=== PATIENT | female | born 1965 | race Two or more races ===

== ENCOUNTER 2025-05-30 06:59 | Inpatient (IN) | payer MEDICAID, OTHER ==
[~2025-05-30] VITALS: Ht 157.5 cm; Wt 68.0 kg
--- NOTE | 2025-05-30 07:35 | ED.PDOC ---
GI ASSESSMENT HPI Comments 59 y/o, presents to the ED for CC of abdominal pain. Patient states, she has been experiencing diffuse abdominal pain that radiates to her lower back sudden onset, 0400 today (05/30/25). Patient reports, associated symptoms of nausea, vomiting, and diarrhea. Upon arrival to the ED, patient's blood pressure is elevated at 175/97mmHg. Patient denies fever, chills, sweats, hematemesis, or melena. No other associated symptoms, modifiers, recent injuries or sick contacts are present at this time. Chief Complaint: Abdominal Pain Time Seen by MD: 07:30 Primary Care Provider: NONE Reviewed Notes: Nurses Notes, Medications, Allergies Allergies: Coded Allergies: NO KNOWN ALLERGIES (Unverified , 03/30/14) Information Source: Patient Mode of Arrival: Ambulatory Timing: Hours Duration: Since onset Prehospital treatment: None Quality: None Vomitus: None Stool: Normal Severity: Moderate Recent: None Recent Hx of: None Pain Location: Diffuse Modifying Factors: Nothing Associated sign and symptoms: Abdominal Pain Past Medical History PAST MEDICAL HISTORY: Denies Surgical History: BTL, Thyroidectomy [employer] History: No Pertinent [employer] History Family History Family History: Unobtainable Social History Smoker: Non-Smoker Alcohol: Denies ETOH Use Drugs: Denies Drug Use Lives In: Home Constitutional: denies: chills, diaphoresis, fatigue, fever, malaise, sweats, weakness, others EENTM: denies: blurred vision, double vision, ear bleeding, ear discharge, ear drainage, ear pain, ear ringing, eye pain, eye redness, hearing loss, mouth pain, mouth swelling, nasal discharge, nose bleeding, nose congestion, nose pain, photophobia, tearing, throat pain, throat swelling, voice changes, others Respiratory: denies: cough, hemoptysis, orthopnea, SOB at rest, shortness of breath, SOB with excertion, stridor, wheezing, others Cardiovascular: denies: chest pain, dizzy spells, diaphoresis, Dyspnea on exertion, edema, irregular heart beat, left arm pain, lightheadedness, palpitations, PND, syncope, others Gastrointestinal: reports: abdominal pain; denies: abdomen distended, blood streaked bowels, constipated, diarrhea, dysphagia, difficulty swallowing, hematemesis, melena, nausea, poor appetite, poor fluid intake, rectal bleeding, rectal pain, vomiting, others Genitourinary: denies: abnormal vagina bleeding, burning, dyspareunia, dysuria, flank pain, frequency, hematuria, incontinence, pain, , vagina discharge, urgency, others Neurological: denies: dizziness, fainting, headache, left sided numbness, left sided weakness, numbness, paresthesia, pre-existing deficit, right sided numbness, right sided weakness, seizure, speech problems, tingling, tremors, weakness, others Musculoskeletal: reports: back pain; denies: gout, joint pain, joint swelling, muscle pain, muscle stiffness, neck pain, others Integumetry: denies: bruises, change in color, change in hair/nails, dryness, laceration, lesions, lumps, rash, wounds, others Allergic/Immunocompromised: denies: Difficulty Healing, Frequent Infections, Hives, Itching, others Hematologic/Lymphatic: denies: anemia, blood clots, easy bleeding, easy bruising, swollen glands, others Endocrine: denies: excessive hunger, excessive sweating, excessive thirst, excessive urination, flushing, intolerance to cold, intolerance to heat, unexplained weight gain, unexplained weight loss, others Psychiatric: denies: anxiety, bipolar disorder, depression, hopeless, panic disorder, schizophrenia, sleepless, suicidal, others All Other Systems: Reviewed and Negative Physical Exam General Appearance: Moderate Distress HEENT: Normal ENT Inspection, Pharynx Normal, TMs Normal Neck: Full Range of Motion, Non-Tender, Normal, Normal Inspection Respiratory: Chest Non-Tender, Lungs Clear, No Accessory Muscle Use, No Respiratory Distress, Normal Breath Sounds Cardiovascular: No Edema, No JVD, No Murmur, No Gallop, Normal Peripheral Pulses, Regular Rate/Rhythm Breast Exam: Deferred Gastrointestinal: Diffuse, No Organomegaly, No Pulsatile Mass, Normal Bowel Sounds, Soft Genitalia: Deferred Pelvic: Deferred Rectal: Deferred Extremities: No calf tenderness, Normal capillary refill, Normal inspection, Normal range of motion, Non-tender, No pedal edema Musculoskeletal : Apperance: Normal Neurologic: Alert, progress man II-XII nml as Tested, No Motor Deficits, Normal Affect, Normal Mood, No Sensory Deficits Cerebellar Function: Normal Reflexes: Normal Skin: Dry, Normal Color, Warm Peripheral Pulses: 3+ Radial (R), 3+ Radial (L) Lymphatic: No Adenopathy Was a procedure done? Was a procedure done?: No GI differential Dx Differential Diagnosis: Cholecystitis, Diverticular disease, Esophagitis, Gastritis/PUD, Gastroenteritis, Inflammatory BD, Pancreatitis, Urolithiasis, Kidney Stone X-Ray, Labs, Meds, VS Vital Signs Date Time Temp Pulse Resp B/P (MAP) Pulse Ox O2 Delivery O2 Flow Rate FiO2 05/30/25 09:41 Room Air* 0 21 05/30/25 09:41 98.0 76 18 188/106 (133) 99 98.0 05/30/25 07:02 98.1 81 24 175/97 97 98.1 Lab Test 05/30/25 08:00 Range/Units White Blood Count 10.0 4.4-10.8 10^3/uL Red Blood Count 5.08 4.0-5.20 10^6/uL Hemoglobin 14.2 12.2-16.2 g/dL Hematocrit 41.7 36.0-46.0 % Mean Corpuscular Volume 82.1 80.0-100.0 fL Mean Corpuscular Hemoglobin 28.0 28.0-32.0 pg Mean Corpuscular Hemoglobin Concent 34.1 32.0-36.0 g/dL Red Cell Distribution Width 14.1 11.8-14.3 % Platelet Count 251 140-450 10^3/uL Mean Platelet Volume 8.5 6.9-10.8 fL Neutrophils (%) (Auto) 75.7 37.0-80.0 % Lymphocytes (%) (Auto) 16.8 10.0-50.0 % Monocytes (%) (Auto) 5.5 0.0-12.0 % Eosinophils (%) (Auto) 1.4 0.0-7.0 % Basophils (%) (Auto) 0.6 0.0-2.0 % Neutrophils # (Auto) 7.6 1.6-8.6 10 ^3/uL Lymphocytes # (Auto) 1.7 0.4-5.4 10 ^3/uL Monocytes # (Auto) 0.5 0-1.3 10 ^3/uL Eosinophils # (Auto) 0.1 0-0.8 10 ^3/uL Basophils # (Auto) 0.1 0-0.2 10 ^3/uL Nucleated Red Blood Cells 0.1 % Sodium Level 141 136-145 mmol/L Potassium Level 3.6 3.5-5.1 mmol/L Chloride Level 106 98-107 mmol/L Carbon Dioxide Level 26 20-31 mmol/L Anion Gap 9 5-15 Blood Urea Nitrogen 15 9-23 mg/dL Creatinine 0.79 0.550-1.02 mg/dL Glomerular Filtration Rate Calc 87 >90 mL/min BUN/Creatinine Ratio 19.0 10.0-20.0 Serum Glucose 104 74-106 mg/dL Calcium Level 8.6 L 8.7-10.4 mg/dL Total Bilirubin 0.4 0.2-1.0 mg/dL Aspartate Amino Transferase (AST) 84 H 13-40 U/L Alanine Aminotransferase (ALT) 70 H 7-40 U/L Alkaline Phosphatase 155 H 46-116 U/L Total Protein 7.9 5.7-8.2 g/dL Albumin 4.6 3.2-4.8 g/dL Lipase 60 H 12-53 U/L Current Medications Medications (Trade) Dose Ordered Sig/Haylee Route Start Time Stop Time Status Last Admin Sodium Chloride 1,000 ml @ 1,000 mls/hr Q1H ONCE IV 05/30/25 08:00 05/30/25 08:59 DC 05/30/25 09:53 Acetaminophen/ Hydrocodone Bitart ([place] 5/325MG Tab) 1 tab ONCE ONCE PO 05/30/25 10:00 05/30/25 10:01 DC 05/30/25 09:52 Patient alert. Complaining of abdominal pain. Blood pressure elevated. Saturation pristine on room air. Possible gallstones. Establish intravenous access. Was given fluids. Was given morphine. Was given Zofran. Explained to the patient. Continue monitoring. CT scan of the abdomen reviewed does show changes such as gallstones possible pancreatitis. [address] [address] Ph: [phone] DIAGNOSTIC IMAGING Diagnostic Imaging Report : [id number] Signed PATIENT: THI ORTIZCCT: [id number] UNIT: [id number] : 1965 LOC: ER ROOM / BED: / AGE / SEX: 59 / F ADM STATUS: REG ER SERVICE 0753 ORDERING PHYSICIAN: JILLIAN DANIELS MD PROCEDURE(s): ABPL - CT AB PEL WO CON-NO ORAL OR IV REASON: gallstonevspancreas ORDER NUMBER(s): [id number], ACCESSION NUMBER(s): [id number] CLINICAL INFORMATION: Abdominal pain. Gallstones versus pancreas. TECHNIQUE: Axial CT images of the abdomen and pelvis were obtained without IV contrast. Coronal and sagittal reformatted images were obtained, reviewed, and stored. Evaluation of the parenchymal organs is limited without IV contrast. Evaluation of the bowel and mesentery is limited without oral contrast. All CT scans at this medical facility are performed using dose modulation techniques as appropriate to a performed exam including the following: Automated exposure control was utilized; adjustment of the MA and/or KV according to patient size; and use of iterative reconstruction technique. CTDIvol = 8.17 mGy DLP = 442.46 mGy-cm COMPARISON: None FINDINGS: Lung bases: Lung bases are clear. Liver: Grossly unremarkable in its noncontrast enhanced appearance. No abnormal density or focal lesion identified. Biliary: There are calcified gallstones in the gallbladder. Spleen: Unremarkable. Pancreas: Grossly unremarkable in its noncontrast enhanced appearance. Adrenal glands: Unremarkable. No mass. Kidneys: No hydronephrosis. No renal or ureteral calculi. Aorta/Vascular: No aneurysm or significant calcification. Retroperitoneum: No mass or lymphadenopathy. Bowel/mesentery: No small bowel obstruction. No free air or free fluid. Appendix is visualized and appears unremarkable. Scattered colonic diverticula without adjacent inflammatory changes to suggest diverticulitis. Pelvic organs: Grossly unremarkable. Bladder: Unremarkable. No mass. Abdominal wall: No mass or hernia. Bones: No acute fracture or suspicious intraosseous lesion. IMPRESSION: 1. Cholelithiasis. 2. Scattered colonic diverticula without adjacent inflammatory changes to suggest diverticulitis. 3. Pancreas appears grossly unremarkable in its limited, noncontrast enhanced appearance. Although correlation with clinical findings is needed to exclude pancreatitis. 4. Additional findings as described above. ATED BY: LEONIDAS SAHU DO DICTATED DATE/TIME: 05/30/25836 SIGNED BY: LEONIDAS SAHU DO SIGNED DATE/TIME: 05/30/25836 CC: [facility] [place] [id number] [place] [id number] Ph: [phone] DIAGNOSTIC IMAGING Diagnostic Imaging Report : [id number] Signed PATIENT: THI ORTIZCCT: [id number] UNIT: [id number] : 1965 LOC: ER ROOM / BED: / AGE / SEX: 59 / F ADM STATUS: REG ER SERVICE 7 ORDERING PHYSICIAN: JILLIAN DANIELS MD PROCEDURE(s): GBUS - GALLBLADDER REASON: le ORDER NUMBER(s): [id number], ACCESSION NUMBER(s): [id number] CLINICAL INFORMATION: Cholelithiasis. Abdominal pain. TECHNIQUE: Grayscale sonographic imaging of the right upper quadrant of the abdomen was performed, assisted by color Doppler techniques. COMPARISON: None FINDINGS: The gallbladder wall measures 1.4 mm in thickness, within normal limits. There are shadowing gallstones in the gallbladder measuring up to 1.2 cm. Negative reported sonographic Mcgarry's sign. The common bile duct measures 3.0 mm in diameter, within normal limits. Borderline increased echogenicity of the liver, may suggest mild fatty infiltration. Liver measures up to 16.5 cm in craniocaudal dimension. Pancreas is obscured by bowel gas. The right kidney measures 8.2 cm. There is no hydronephrosis. Right renal cortical echogenicity and cortical thickness are within normal limits. IMPRESSION: 1. Cholelithiasis with no sonographic evidence of acute cholecystitis. Correlate with clinical findings. 2. Borderline increased echogenicity of the liver, may suggest mild fatty infiltration. ATED BY: LEONIDAS SAHU DO DICTATED DATE/TIME: 05/30/25 1022 SIGNED BY: LEONIDAS SAHU DO SIGNED DATE/TIME: 05/30/25 1022 CC: Time of 1ST Reevaluation: 08:00 Reevaluation 1ST: Unchanged Patient Education/Counseling: Diagnosis, Treatment Family Education/Counseling: No Family Present SEPSIS Sepsis Screen Date sepsis recognized/suspect: May 30, 2025 Time Sepsis recognized/suspect: 0707 Recent Procedure: No On Antibiotic Therapy: No Respiratory Rate >20: Yes Heart Rate >90: No Temp<36 C (96.8 F) or >38.3 C: No SBP <90 or MAP <65 mmHG: No New Acute Mental Status Change: No Is the patient on CPAP, BIPAP,: No Physician Orders Urinalysis (05/30/25 07:53) Ct Ab Pel Wo Con-No Oral Or Iv (05/30/25 07:53) Gallbladder (05/30/25 09:18) Vital Signs Date Time Temp Pulse Resp B/P (MAP) Pulse Ox O2 Delivery O2 Flow Rate FiO2 05/30/25 09:41 Room Air* 0 21 05/30/25 09:41 98.0 76 18 188/106 (133) 99 98.0 05/30/25 07:02 98.1 81 24 175/97 97 98.1 Laboratory Tests Test 05/30/25 08:00 White Blood Count 10.0 10^3/uL (4.4-10.8) Medications Medications Dose Ordered Sig/Haylee Route Start Time Stop Time Status Last Admin Dose Admin Acetaminophen/ Hydrocodone Bitart 1 tab ONCE ONCE PO 05/30/25 10:00 05/30/25 10:01 DC 05/30/25 09:52 Sodium Chloride 1,000 ml @ 1,000 mls/hr Q1H ONCE IV 05/30/25 08:00 05/30/25 08:59 DC 05/30/25 09:53 Departure 1 Departure Time of Disposition: 08:09 Impression: Primary Impression: Acute abdominal pain Additional Impression: Acute pancreatitis Qualified Codes: K85.90 - Acute pancreatitis without necrosis or infection, unspecified Disposition: 09 ADMITTED INPATIENT Admit to: Med Surg Condition: Guarded Critical Care Note Critical Care Time?: No Stability Stability form required: No Heart Score Heart Score: Heart Score Response (Comments) Value History N/A 0 EKG N/A 0 Age N/A 0 Risk Factors N/A 0 Troponin N/A 0 Total 0 I personally scribed for JILLIAN DANIELS MD ([email or web address]) on 05/30/25 at 07:35. Electronically submitted by Blanquita Kauffman ([email or web address]). I personally scribed for JILLIAN DANIELS MD ([email or web address]) on 05/30/25 at 08:02. Electronically submitted by Blanquita Kauffman ([email or web address]). I personally scribed for JILLIAN DANIELS MD ([email or web address]) on 05/30/25 at 10:42. Electronically submitted by Blanquita Kauffman ([email or web address]). I personally scribed for JILLIAN DANIELS MD ([email or web address]) on 05/30/25 at 10:43. Electronically submitted by Blanquita Kauffman ([email or web address]). I personally scribed for JILLIAN DANIELS MD ([email or web address]) on 05/30/25 at 10:44. Electronically submitted by Blanquita Kauffman ([email or web address]). JILLIAN DANIELS MD May 30, 2025 07:35
[2025-05-30 08:21] LABS: Hematocrit 41.7 % (36.0-46.0); Hemoglobin 14.2 g/dL (12.2-16.2); Mean Corpuscular Hemoglobin 28.0 pg (28.0-32.0); Mean Corpuscular Volume 82.1 fL (80.0-100.0); Nucleated Red Blood Cells % 0.1 %
[2025-05-30 08:35] LABS: Chloride 106 mmol/L (98-107); Potassium 3.6 mmol/L (3.5-5.1); Sodium 141 mmol/L (136-145)
[2025-05-30 08:37] LABS: Anion Gap 9 (5-15); Carbon Dioxide 26 mmol/L (20-31)
[2025-05-30 08:39] LABS: Calcium 8.6 mg/dL (8.7-10.4)
--- NOTE | 2025-05-30 08:39 | DVH ---
CLINICAL INFORMATION: Abdominal pain. Gallstones versus pancreas. TECHNIQUE: Axial CT images of the abdomen and pelvis were obtained without IV contrast. Coronal and s agittal reformatted images were obtained, reviewed, and stored. Evaluation of the parenchymal organs is limited without IV contrast. Evaluation of the bowel and mesentery is limited without oral contras t. All CT scans at this medical facility are performed using dose modulation techniques as appropriat e to a performed exam including the following: Automated exposure control was utilized; adjustment of the MA and/or KV according to patient size; and use of iterative reconstruction technique. CTDIvol = 8.17 mGy DLP = 442.46 mGy-cm COMPARISON: None FINDINGS: Lung bases: Lung bases are clear. Liver: Grossly unremarkable in its noncontrast enhanced appearance. No abnormal density or focal lesi on identified. Biliary: There are calcified gallstones in the gallbladder. Spleen: Unremarkable. Pancreas: Grossly unremarkable in its noncontrast enhanced appearance. Adrenal glands: Unremarkable. No mass. Kidneys: No hydronephrosis. No renal or ureteral calculi. Aorta/Vascular: No aneurysm or significant calcification. Retroperitoneum: No mass or lymphadenopathy. Bowel/mesentery: No small bowel obstruction. No free air or free fluid. Appendix is visualized and ap pears unremarkable. Scattered colonic diverticula without adjacent inflammatory changes to suggest d iverticulitis. Pelvic organs: Grossly unremarkable. Bladder: Unremarkable. No mass. Abdominal wall: No mass or hernia. Bones: No acute fracture or suspicious intraosseous lesion. IMPRESSION: 1. Cholelithiasis. 2. Scattered colonic diverticula without adjacent inflammatory changes to suggest diverticulitis. 3. Pancreas appears grossly unremarkable in its limited, noncontrast enhanced appearance. Although c orrelation with clinical findings is needed to exclude pancreatitis. 4. Additional findings as described above.
[2025-05-30 08:42] LABS: Glucose 104 mg/dL (74-106)
[2025-05-30 08:43] LABS: Blood Urea Nitrogen 15 mg/dL (9-23); Total Protein 7.9 g/dL (5.7-8.2)
[2025-05-30 08:44] LABS: Albumin 4.6 g/dL (3.2-4.8)
[2025-05-30 08:45] LABS: Alkaline Phosphatase 155 U/L (46-116); Bilirubin, Total 0.4 mg/dL (0.2-1.0)
[2025-05-30 08:46] LABS: Alanine Aminotransferase 70 U/L (7-40); BUN/Creatinine Ratio 19.0 (10.0-20.0); Lipase 60 U/L (12-53)
[2025-05-30] MEDS: HYDROcodone-ACET 5/325MG TAB PO ONE (09:52)
[2025-05-30] MEDS: SODIUM CHLORIDE 0.9% 1,000 ML IV ONE (09:53)
[2025-05-30] MEDS: MORPHINE SULFATE 4 MG/ML SYR/VIAL IV ONE (09:53)
[2025-05-30] MEDS: ONDANSETRON HCL 4 MG/2 ML VIAL IV ONE (09:53)
[2025-05-30] MEDS: HYDROcodone-ACET 5/325MG TAB ONE (09:54)
--- NOTE | 2025-05-30 10:25 | DVH ---
CLINICAL INFORMATION: Cholelithiasis. Abdominal pain. TECHNIQUE: Grayscale sonographic imaging of the right upper quadrant of the abdomen was performed, a ssisted by color Doppler techniques. COMPARISON: None FINDINGS: The gallbladder wall measures 1.4 mm in thickness, within normal limits. There are shado wing gallstones in the gallbladder measuring up to 1.2 cm. Negative reported sonographic Mcgarry's sig n. The common bile duct measures 3.0 mm in diameter, within normal limits. Borderline increased echogenicity of the liver, may suggest mild fatty infiltration. Liver measures u p to 16.5 cm in craniocaudal dimension. Pancreas is obscured by bowel gas. The right kidney measures 8.2 cm. There is no hydronephrosis. Right renal cortical echogenicity an d cortical thickness are within normal limits. IMPRESSION: 1. Cholelithiasis with no sonographic evidence of acute cholecystitis. Correlate with clinical findin gs. 2. Borderline increased echogenicity of the liver, may suggest mild fatty infiltration.
[2025-05-30 13:00] VITALS: BP 158/99; PULSE 72; RESP 18; TEMP 97.6; O2SAT 97
[2025-05-30] MEDS ORDERED: NITROGLYCERIN 0.4 MG SL TAB SL PRN (13:45)
[2025-05-30] MEDS ORDERED: MORPHINE SULFATE INJ 2 MG/ml SYRG IV PRN ×2 (13:45)
[2025-05-30] MEDS ORDERED: ONDANSETRON HCL 4 MG/2 ML VIAL IV PRN (13:45)
--- NOTE | 2025-05-30 14:20 | DVHHPRES ---
History of Present Illness Resident Creating Document: SENDY POLANCO RESIDENT History of Present Illness Angie Hebert is a 52s in his old female with a PMH of HTN thyroid surgery presenting with a chief complaints of abdominal pain and diarrhea. Patient reported the abdominal pain is primarily located in the epigastric region, described as being in the middle upper abdomen which started today moaning, radiating to back with no aggravating or relieving factors but associated with nausea and diarrhea which is nonbloody. Patient believes that symptoms may be related to the eating tacos from outside started yesterday. Patient also endorsed history of gallbladder stones which was diagnosed 2-3 ye ars ago. On my assessment patient denies fever, chest pain, shortness of breath, bloody diarrhea, vomiting and other associated symptoms at this time. PMH: HTN, cholelithiasis, GERD, thyroid tumor status post thyroidectomy PSH: Thyroidectomy today years ago Family history: Noncontributory Social history: Lives at home with the . Denies smoking, alcohol and other drug abuse Allergies: No known allergies Home medications: Hypertensive medications but not sure what she is taking Patient seen and examined at the bedside. Patient currently reporting having Abdominal pain, nausea and diarrhea has been improved. No other symptoms at this time. Review of Systems Allergies: Coded Allergies: NO KNOWN ALLERGIES (Unverified , 03/30/14) Medications Current Medications Medications Dose Ordered Sig/Haylee Route Start Time Stop Time Status Last Admin Dose Admin Sodium Chloride 10 ml Q8HR IV 05/30/25 14:00 Sodium Chloride 1,000 ml @ 60 mls/hr [id number] IV 05/30/25 13:45 Ondansetron HCl 4 mg Q4HP PRN IV 05/30/25 13:45 Enoxaparin Sodium 40 mg DAILY SC 05/31/25 10:00 Acetaminophen 650 mg Q6HP PRN PO 05/30/25 13:45 Morphine Sulfate 2 mg Q4HPRN PRN IV 05/30/25 13:45 Nitroglycerin 0.4 mg Q5MINP PRN SL 05/30/25 13:45 Morphine Sulfate 2 mg Q30M PRN IV 05/30/25 13:45 Exam Vital Signs Vital Signs Date Time Temp Pulse Resp B/P (MAP) Pulse Ox O2 Delivery O2 Flow Rate FiO2 05/30/25 09:41 Room Air* 0 21 05/30/25 09:41 98.0 76 18 188/106 (133) 99 98.0 Exam Pt is lying on bed General Appearance: Alert, Oriented X3, Cooperative, Not in acute distress HEENT: Atraumatic, Mucous membranes moist/pink Respiratory: Clear to auscultation, Normal air movement, No added sounds Cardiovascular: Regular rate, Normal S1, Normal S2, No murmurs Abdominal: Epigastric tenderness, Active bowel sounds, Soft, no distention Extremities: No edema, Normal pulses, No tenderness/swelling Skin: No Significant rash, except past surgical scars Neuro: Normal speech, sensorimotor deficits none Psych/Mental Status: Mental status NL, Mood NL Nurse was there as np during examination Labs/Xrays Labs Test 05/30/25 08:00 Range/Units White Blood Count 10.0 4.4-10.8 10^3/uL Red Blood Count 5.08 4.0-5.20 10^6/uL Hemoglobin 14.2 12.2-16.2 g/dL Hematocrit 41.7 36.0-46.0 % Mean Corpuscular Volume 82.1 80.0-100.0 fL Mean Corpuscular Hemoglobin 28.0 28.0-32.0 pg Mean Corpuscular Hemoglobin Concent 34.1 32.0-36.0 g/dL Red Cell Distribution Width 14.1 11.8-14.3 % Platelet Count 251 140-450 10^3/uL Mean Platelet Volume 8.5 6.9-10.8 fL Neutrophils (%) (Auto) 75.7 37.0-80.0 % Lymphocytes (%) (Auto) 16.8 10.0-50.0 % Monocytes (%) (Auto) 5.5 0.0-12.0 % Eosinophils (%) (Auto) 1.4 0.0-7.0 % Basophils (%) (Auto) 0.6 0.0-2.0 % Neutrophils # (Auto) 7.6 1.6-8.6 10 ^3/uL Lymphocytes # (Auto) 1.7 0.4-5.4 10 ^3/uL Monocytes # (Auto) 0.5 0-1.3 10 ^3/uL Eosinophils # (Auto) 0.1 0-0.8 10 ^3/uL Basophils # (Auto) 0.1 0-0.2 10 ^3/uL Nucleated Red Blood Cells 0.1 % Sodium Level 141 136-145 mmol/L Potassium Level 3.6 3.5-5.1 mmol/L Chloride Level 106 98-107 mmol/L Carbon Dioxide Level 26 20-31 mmol/L Anion Gap 9 5-15 Blood Urea Nitrogen 15 9-23 mg/dL Creatinine 0.79 0.550-1.02 mg/dL Glomerular Filtration Rate Calc 87 >90 mL/min BUN/Creatinine Ratio 19.0 10.0-20.0 Serum Glucose 104 74-106 mg/dL Calcium Level 8.6 L 8.7-10.4 mg/dL Total Bilirubin 0.4 0.2-1.0 mg/dL Aspartate Amino Transferase (AST) 84 H 13-40 U/L Alanine Aminotransferase (ALT) 70 H 7-40 U/L Alkaline Phosphatase 155 H 46-116 U/L Total Protein 7.9 5.7-8.2 g/dL Albumin 4.6 3.2-4.8 g/dL Lipase 60 H 12-53 U/L SEPSIS Sepsis Screen Date sepsis recognized/suspect: May 30, 2025 Time Sepsis recognized/suspect: 706 Recent Procedure: No On Antibiotic Therapy: No Respiratory Rate >20: Yes Heart Rate >90: No Temp<36 C (96.8 F) or >38.3 C: No SBP <90 or MAP <65 mmHG: No New Acute Mental Status Change: No Is the patient on CPAP, BIPAP,: No Physician Orders Urinalysis (05/30/25 07:53) Ct Ab Pel Wo Con-No Oral Or Iv (05/30/25 07:53) Gallbladder (05/30/25 09:18) Admit (05/30/25 13:40) Allergies (05/30/25 13:40) Code Status (05/30/25 13:40) Sodium Chloride Lock (Saline Lock Ns) (05/30/25 14:00) Sodium Chloride 0.9% (05/30/25 13:45) Ondansetron Hcl (Zofran) (05/30/25 13:45) Enoxaparin Sodium (Lovenox) (05/31/25 10:00) Complete Blood Count (05/31/25 04:00) Comprehensive Metabolic Panel (05/31/25 04:00) Condition: Fair (05/30/25 13:40) Acetaminophen Tablet (Tylenol Tablet) (05/30/25 13:45) Morphine Sulfate Injection (05/30/25 13:45) Oxygen By Nasal Cannula (05/30/25 13:40) Stat Ekg For Chest Pain (05/30/25 13:40) Notify Md Of Changes From Base (05/30/25 13:40) Procedures Rn For 24 Hours (05/30/25 13:40) Emergency Dysrhythmia Protocol (05/30/25 13:40) Rhythm Strips Once Every Shift (05/30/25 13:40) Clear Liq Diet (05/30/25 Dinner) Morphine Sulfate Injection (05/30/25 13:45) Nitroglycerin Sublingual (Ntrostat Subli (05/30/25 13:45) Metronidazole 500mg/100ml (Flagyl 500mg/ (05/30/25 22:00) B-Type Natriuretic Peptide (05/30/25 14:09) C-Reactive Protein (05/30/25 14:09) Drug Screen (05/30/25 14:09) Hemoglobin A1c (05/30/25 14:09) Lactic Acid W/ Reflex Order (05/30/25 14:09) Magnesium (05/30/25 14:09) PTPTT (05/30/25 14:09) Thyroid Stimulating Hormone (05/30/25 14:09) Urinalysis (05/30/25 14:09) Stool Bacterial Culture (05/30/25 14:16) Stool Wbc (05/30/25 14:16) Pantoprazole (Protonix) (05/30/25 14:30) Hydralazine Injection (Apresoline Inject (05/30/25 14:30) Vital Signs Date Time Temp Pulse Resp B/P (MAP) Pulse Ox O2 Delivery O2 Flow Rate FiO2 05/30/25 09:41 Room Air* 0 21 05/30/25 09:41 98.0 76 18 188/106 (133) 99 98.0 05/30/25 07:02 98.1 81 24 175/97 97 98.1 Laboratory Tests Test 05/30/25 08:00 White Blood Count 10.0 10^3/uL (4.4-10.8) Medications Medications Dose Ordered Sig/Haylee Route Start Time Stop Time Status Last Admin Dose Admin Acetaminophen/ Hydrocodone Bitart 1 tab ONCE ONCE PO 05/30/25 10:00 05/30/25 10:01 DC 05/30/25 09:52 1 TAB Sodium Chloride 1,000 ml @ 1,000 mls/hr Q1H ONCE IV 05/30/25 08:00 05/30/25 08:59 DC 05/30/25 09:53 1,000 MLS/HR Assessment/Plan Assessment/Plan Possible Acute gastroenteritis - med surge - IV fluids - clear liquids - stool studies - IV Flagyl for now - CT abdominal pelvis showed cholelithiasis but no other acute signs - supportive treatment Rule out acute pancreatitis - continue supportive management with IVF and pain management - elevated lipase - CT findings no acute changes in pancreas GERD -continue Protonix Possible symptomatic cholelithiasis - liver ultrasound showed no signs of acute cholecystitis - pain management for now Hypertensive urgency -Continuously monitor blood pressure - IV hydralazine 10 mg if SBP more than 160 GI PPX: Protonix VTE ppx: Lovenox Diet: clear liquids Goals of care addressed with the patient for more than 27 minutes: Full code status Case discussed with Dr. Whitlock ,patient and nurse Plan discussed with: Patient My Orders Orders - SENDY POLANCO RESIDENT Procedure Category Date Status Time Admit ADMIT 05/30/25 Transmitted 13:40 Allergies [facility] 05/30/25 In Process 13:40 Code Status CODE 05/30/25 Transmitted 13:40 Sodium Chloride Lock PHA 05/30/25 In Process (Saline Lock Ns) 14:00 Sodium Chloride 0.9% PHA 05/30/25 In Process 13:45 Ondansetron Hcl PHA 05/30/25 In Process (Zofran) 13:45 Enoxaparin Sodium PHA 05/31/25 In Process (Lovenox) 10:00 Complete Blood Count LAB 05/31/25 Verified 04:00 Comprehensive LAB 05/31/25 Verified Metabolic Panel 04:00 Condition: Fair [facility]OR[facility] 05/30/25 In Process 13:40 Acetaminophen Tablet PHA 05/30/25 In Process (Tylenol Tablet) 13:45 Morphine Sulfate PHA 05/30/25 In Process Injection 13:45 Oxygen By Nasal RT 05/30/25 Transmitted Cannula 13:40 Stat Ekg For Chest [facility] 05/30/25 In Process Pain 13:40 Notify Md Of Changes [facility] 05/30/25 In Process From Base 13:40 Procedures Rn For [facility] 05/30/25 In Process 24 Hours 13:40 Emergency Dysrhythmia [facility] 05/30/25 In Process Protocol 13:40 Rhythm Strips Once [facility] 05/30/25 In Process Every Shift 13:40 Clear Liq Diet DIET 05/30/25 Verified Dinner Morphine Sulfate PHA 05/30/25 In Process Injection 13:45 Nitroglycerin PHA 05/30/25 In Process Sublingual (Ntrostat 13:45 Metronidazole PHA 05/30/25 In Process 500mg/100ml (Flagyl 22:00 B-Type Natriuretic LAB 05/30/25 Logged Peptide 14:09 C-Reactive Protein LAB 05/30/25 Logged 14:09 Drug Screen LAB 05/30/25 Logged 14:09 Hemoglobin A1c LAB 05/30/25 Logged 14:09 Lactic Acid W/ Reflex LAB 05/30/25 Logged Order 14:09 Magnesium LAB 05/30/25 Logged 14:09 PTPTT LAB 05/30/25 Logged 14:09 Thyroid Stimulating LAB 05/30/25 Logged Hormone 14:09 Urinalysis LAB 05/30/25 Logged 14:09 Stool Bacterial SADE 05/30/25 Logged Culture 14:16 Stool Wbc LAB 05/30/25 Logged 14:16 Pantoprazole PHA 05/30/25 Logged (Protonix) 14:30 Hydralazine Injection PHA 05/30/25 Verified (Apresoline Inject 14:30 SENDY POLANCO RESIDENT May 30, 2025 14:20
[2025-05-30 14:45] LABS: Magnesium 2.1 mg/dL (1.6-2.6)
[2025-05-30] MEDS: SODIUM CHLORIDE 0.9% 1,000 ML IV SCH (14:47)
[2025-05-30] MEDS: SODIUM CHLOR 0.9% PF (SALINE LOCK) 10ML VIAL/SYR IV SCH (14:59)
[2025-05-30 15:02] VITALS: PULSE 62; RESP 18
[2025-05-30] MEDS ORDERED: HYDR12.55 PO (15:16)
[2025-05-30 15:33] LABS: INR 0.93 (0.9-1.15); Partial Thromboplastin Time 27.8 SEC (24.5-34.5); Prothrombin Time 9.9 sec (9.3-11.8)
[2025-05-30] MEDS: PANTOPRAZOLE 40 MG/10 ML VIAL INJ IV SCH (15:58)
[2025-05-30 17:00] VITALS: BP 162/87; PULSE 66; RESP 18; TEMP 97.7; O2SAT 96
[2025-05-30 19:11] LABS: Urine Protein, UAD Negative (Negative)
[2025-05-30 19:39] LABS: Amphetamine Screen, Urine Neg (NEGATIVE); Barbiturate Scree,Urine Neg (NEGATIVE); Benzodiazephine Screen, Urine Neg (NEGATIVE); Cannabinoid Screen, Urine Neg (NEGATIVE); Cocaine Screen, Urine Neg (NEGATIVE); Opiate Scree,Urine Neg (NEGATIVE); Phencyclidine Screen, Urine Neg (NEGATIVE)
[2025-05-30 22:10] VITALS: BP 147/89; PULSE 64; RESP 17; TEMP 97.6; O2SAT 100
[2025-05-31 01:00] VITALS: BP 140/88; PULSE 78; RESP 18; TEMP 98.2; O2SAT 97
[2025-05-31 05:00] VITALS: BP 122/85; PULSE 81; RESP 19; TEMP 98; O2SAT 97
[2025-05-31 07:26] LABS: Albumin 4.3 g/dL (3.2-4.8); Anion Gap 12 (5-15); BUN/Creatinine Ratio 11.7 (10.0-20.0); Bilirubin, Total 0.5 mg/dL (0.2-1.0); Carbon Dioxide 26 mmol/L (20-31); Chloride 105 mmol/L (98-107); Glucose 95 mg/dL (74-106); Potassium 3.6 mmol/L (3.5-5.1); Sodium 143 mmol/L (136-145); Total Protein 7.2 g/dL (5.7-8.2)
[2025-05-31 07:27] LABS: Alanine Aminotransferase 51 U/L (7-40); Alkaline Phosphatase 118 U/L (46-116); Blood Urea Nitrogen 9 mg/dL (9-23); Calcium 8.5 mg/dL (8.7-10.4)
[2025-05-31 07:35] LABS: Hematocrit 40.1 % (36.0-46.0); Hemoglobin 13.6 g/dL (12.2-16.2); Mean Corpuscular Hemoglobin 27.9 pg (28.0-32.0); Mean Corpuscular Volume 82.3 fL (80.0-100.0); Nucleated Red Blood Cells % 0.1 %
[2025-05-31 08:58] VITALS: BP 126/84; PULSE 71; RESP 17; TEMP 97.8; O2SAT 97
[2025-05-31] MEDS: ENOXAPARIN SOD 40 MG/0.4 ML SYRINGE SC SCH (10:00)
[2025-05-31] MEDS ORDERED: NITR-87 PO (11:21)
[2025-05-31] MEDS ORDERED: SUCR1TAB31 PO (11:21)
[2025-05-31] MEDS ORDERED: PANT40T PO (11:21)
[2025-05-31] MEDS: SUCRALFATE 1 GM TAB PO SCH (11:30)
[2025-05-31] MEDS ORDERED: ZOFR4T PO (12:34)
--- NOTE | 2025-05-31 12:34 | DVHDSRES ---
Discharge Summary Date of Admission Resident Creating Document: SENDY POLANCO RESIDENT May 30, 2025 at 13:40 Date of Discharge: May 31, 2025 Admitting Diagnosis Acute gastroenteritis likely infectious cause Labs/Diagnostic Data: Laboratory Results Test 05/31/25 06:02 05/30/25 18:10 05/30/25 14:41 05/30/25 08:00 White Blood Count 4.6 10^3/uL (4.4-10.8) Red Blood Count 4.87 10^6/uL (4.0-5.20) Hemoglobin 13.6 g/dL (12.2-16.2) Hematocrit 40.1 % (36.0-46.0) Mean Corpuscular Volume 82.3 fL (80.0-100.0) Mean Corpuscular Hemoglobin 27.9 pg (28.0-32.0) Mean Corpuscular Hemoglobin Concent 33.9 g/dL (32.0-36.0) Red Cell Distribution Width 14.0 % (11.8-14.3) Platelet Count 233 10^3/uL (140-450) Mean Platelet Volume 8.6 fL (6.9-10.8) Neutrophils (%) (Auto) 48.7 % (37.0-80.0) Lymphocytes (%) (Auto) 39.2 % (10.0-50.0) Monocytes (%) (Auto) 7.6 % (0.0-12.0) Eosinophils (%) (Auto) 3.5 % (0.0-7.0) Basophils (%) (Auto) 1.0 % (0.0-2.0) Neutrophils # (Auto) 2.3 10 ^3/uL (1.6-8.6) Lymphocytes # (Auto) 1.8 10 ^3/uL (0.4-5.4) Monocytes # (Auto) 0.4 10 ^3/uL (0-1.3) Eosinophils # (Auto) 0.2 10 ^3/uL (0-0.8) Basophils # (Auto) 0 10 ^3/uL (0-0.2) Nucleated Red Blood Cells 0.1 % Sodium Level 143 mmol/L (136-145) Potassium Level 3.6 mmol/L (3.5-5.1) Chloride Level 105 mmol/L (98-107) Carbon Dioxide Level 26 mmol/L (20-31) Anion Gap 12 (5-15) Blood Urea Nitrogen 9 mg/dL (9-23) Creatinine 0.77 mg/dL (0.550-1.02) Glomerular Filtration Rate Calc 90 mL/min (>90) BUN/Creatinine Ratio 11.7 (10.0-20.0) Serum Glucose 95 mg/dL (74-106) Calcium Level 8.5 mg/dL (8.7-10.4) Total Bilirubin 0.5 mg/dL (0.2-1.0) Aspartate Amino Transferase (AST) 35 U/L (13-40) Alanine Aminotransferase (ALT) 51 U/L (7-40) Alkaline Phosphatase 118 U/L (46-116) Total Protein 7.2 g/dL (5.7-8.2) Albumin 4.3 g/dL (3.2-4.8) Urine Color Colorless (Yellow) Urine Clarity Clear (Clear) Urine pH 5.5 (5.0-9.0) Urine Specific [place] 1.009 (1.001-1.035) Urine Protein Negative (Negative) Urine Ketones Negative (Negative) Urine Blood 1+ /uL (Negative) Urine Nitrite Negative (Negative) Urine Bilirubin Negative (Negative) Urine Urobilinogen Normal mg/dL (Negative) Urine Leukocyte Esterase 2+ /uL (Negative) Urine RBC 4 /hpf (0 - 4) Urine Microscopic WBC 11 /HPF (0-5) Urine Squamous Epithelial Cells Few /hpf (<5) Urine Bacteria None seen /hpf (None Seen) Urine Glucose Normal mg/dL (Normal) Urine Opiates Screen Neg (NEGATIVE) Urine Fentanyl Screen Neg (NEGATIVE) Urine Barbiturates Screen Neg (NEGATIVE) Urine Phencyclidine Screen Neg (NEGATIVE) Urine Amphetamines Screen Neg (NEGATIVE) Urine Benzodiazepines Screen Neg (NEGATIVE) Urine Cocaine Screen Neg (NEGATIVE) Urine Cannabinoids Screen Neg (NEGATIVE) Prothrombin Time 9.9 sec (9.3-11.8) Prothrombin Time INR 0.93 (0.9-1.15) Activated Partial Thromboplast Time 27.8 SEC (24.5-34.5) Lactic Acid Level 1.5 mmol/L (0.4-2.0) Hemoglobin A1c 6.1 % A1C (<5.7) Magnesium Level 2.1 mg/dL (1.6-2.6) C-Reactive Protein High Sensitivity 0.30 mg/dL (<1.0) B-Type Natriuretic Peptide 7.25 pg/mL (0-100) Lipase 60 U/L (12-53) Thyroid Stimulating Hormone (TSH) 0.77 uIU/mL (0.55-4.78) Other Laboratory Tests 05/31/25 06:02 Brief Hx & Hospital Course: Patient is 59 years old female with past medical history of hypertension, thyroid surgery came with a complaint of abdominal pain nausea and diarrhea. As per patient she has been having nausea for last 2 days, had 3 diarrhea before she came to the hospital nonbloody, also abdominal pain, sudden onset, 10/10 initially, burning in nature, radiating to the back, relieved with some pain medication. Initial lab workup revealed lipase 60. CT abdomen and pelvis revealed-Cholelithiasis. Scattered colonic diverticula without adjacent inflammatory changes to suggest diverticulitis. Ultrasound of the gallbladder revealed cholelithiasis, ruled out acute cholecystitis. Patient was treated conservatively. Patient with possible UTI with leukocyte esterase 2+, WBC patient is treated conservatively with the IV metronidazole, patient's symptom improved clinically. Patient is adamant about going home today. Patient has being discharged home with the pantoprazole 40 mg p.o. daily, sucralfate 1 g p.o. b.i.d., Zofran 4 mg p.o. q.6h PRN. Macrobid 100 mg p.o. b.i.d. for 5 days. Patient was advised to follow up with the her primary care physician with a the report of urine culture sensitivity. Patient was hemodynamically stable on discharge. Patient's meds were sent to the pharmacy electronically. Operations or Procedures [address] [address] Ph: [phone] DIAGNOSTIC IMAGING Diagnostic Imaging Report : [id number] Signed PATIENT: THI ORTIZT: [id number] UNIT: [id number] : 1965 LOC: ER ROOM / BED: / AGE / SEX: 59 / F ADM STATUS: REG ER SERVICE [id number] ORDERING PHYSICIAN: JILLIAN DANIELS MD PROCEDURE(s): GBUS - GALLBLADDER REASON: le ORDER NUMBER(s): [id number], ACCESSION NUMBER(s): [id number] CLINICAL INFORMATION: Cholelithiasis. Abdominal pain. TECHNIQUE: Grayscale sonographic imaging of the right upper quadrant of the abdomen was performed, assisted by color Doppler techniques. COMPARISON: None FINDINGS: The gallbladder wall measures 1.4 mm in thickness, within normal limits. There are shadowing gallstones in the gallbladder measuring up to 1.2 cm. Negative reported sonographic Mcgarry's sign. The common bile duct measures 3.0 mm in diameter, within normal limits. Borderline increased echogenicity of the liver, may suggest mild fatty infiltration. Liver measures up to 16.5 cm in craniocaudal dimension. Pancreas is obscured by bowel gas. The right kidney measures 8.2 cm. There is no hydronephrosis. Right renal cortical echogenicity and cortical thickness are within normal limits. IMPRESSION: 1. Cholelithiasis with no sonographic evidence of acute cholecystitis. Correlate with clinical findings. 2. Borderline increased echogenicity of the liver, may suggest mild fatty infiltration. ATED BY: LEONIDAS SAHU DO DICTATED DATE/TIME: 05/30/25 1022 SIGNED BY: LEONIDAS SAHU DO SIGNED DATE/TIME: 05/30/25 1022 CC: [place] [id number] Ph: [phone] DIAGNOSTIC IMAGING Diagnostic Imaging Report : [id number] Signed PATIENT: THI ORTIZT: [id number] UNIT: [id number] : 1965 LOC: ER ROOM / BED: / AGE / SEX: 59 / F ADM STATUS: REG ER SERVICE [id number] ORDERING PHYSICIAN: JILLIAN DANIELS MD PROCEDURE(s): ABPL - CT AB PEL WO CON-NO ORAL OR IV REASON: gallstonevspancreas ORDER NUMBER(s): [id number], ACCESSION NUMBER(s): [id number] CLINICAL INFORMATION: Abdominal pain. Gallstones versus pancreas. TECHNIQUE: Axial CT images of the abdomen and pelvis were obtained without IV contrast. Coronal and sagittal reformatted images were obtained, reviewed, and stored. Evaluation of the parenchymal organs is limited without IV contrast. Evaluation of the bowel and mesentery is limited without oral contrast. All CT scans at this medical facility are performed using dose modulation techniques as appropriate to a performed exam including the following: Automated exposure control was utilized; adjustment of the MA and/or KV according to patient size; and use of iterative reconstruction technique. CTDIvol = 8.17 mGy DLP = 442.46 mGy-cm COMPARISON: None FINDINGS: Lung bases: Lung bases are clear. Liver: Grossly unremarkable in its noncontrast enhanced appearance. No abnormal density or focal lesion identified. Biliary: There are calcified gallstones in the gallbladder. Spleen: Unremarkable. Pancreas: Grossly unremarkable in its noncontrast enhanced appearance. Adrenal glands: Unremarkable. No mass. Kidneys: No hydronephrosis. No renal or ureteral calculi. Aorta/Vascular: No aneurysm or significant calcification. Retroperitoneum: No mass or lymphadenopathy. Bowel/mesentery: No small bowel obstruction. No free air or free fluid. Appendix is visualized and appears unremarkable. Scattered colonic diverticula without adjacent inflammatory changes to suggest diverticulitis. Pelvic organs: Grossly unremarkable. Bladder: Unremarkable. No mass. Abdominal wall: No mass or hernia. Bones: No acute fracture or suspicious intraosseous lesion. IMPRESSION: 1. Cholelithiasis. 2. Scattered colonic diverticula without adjacent inflammatory changes to suggest diverticulitis. 3. Pancreas appears grossly unremarkable in its limited, noncontrast enhanced appearance. Although correlation with clinical findings is needed to exclude pancreatitis. 4. Additional findings as described above. ATED BY: LEONIDAS SAHU DO DICTATED DATE/TIME: 05/30/25836 SIGNED BY: LEONIDAS SAHU DO SIGNED DATE/TIME: 05/30/25836 CC: Condition at Discharge: Stable Final Diagnosis/Problems List Acute gastroenteritis likely infectious Acute gastritis Suspected UTI-acute cystitis without hematuria Hypertension Discharge Disposition: Home Discharge Instruct/Medications Diet: See Comment Diet comment: Full liquid diet for 5 days then advance diet as tolerated Activity: No Restrictions, As Tolerated Follow Up/Referral: Please follow up with the primary care physician in 1 week with the culture sensitivity report for urine Medications: Macrobid 100 mg p.o. b.i.d. Pantoprazole 40 mg p.o. daily Sucralfate 1 g p.o. b.i.d. for 3 weeks Zofran 4 mg q.6h PRN Please resume other home medications for hypertension Scheduled Hydrochlorothiazide (Hydrochlorothiazide), 1 TAB PO DAILY, (Reported) Nitrofurantoin Monohydrate Mac (Macrobid), 100 MG PO BID Pantoprazole Sodium Sesquihydr (Pantoprazole Sodium), 40 MG PO DAILY Sucralfate (Carafate), 1 GM PO BID Scheduled PRN Ondansetron Odt 4MG Tab (Zofran Po), 4 MG PO Q6HP PRN Discharge Statement: "Patient was advised to return to the ER or call 911 if any headaches, dizziness, shortness of breath, chest pain, abdominal pain, bleeding, fevers, or worsening of medical condition. Patient was counseled about treatment plan, medications, possible side effects, patientverbalized understanding. All questions were answered to the best of my ability. This discharge took greater then 30 minutes in planning, reviewing documentation, counseling the patient, and discussing with other team members." ASSESSMENT ASSESSMENT Assessment Acute gastroenteritis likely infectious Acute gastritis Suspected UTI Hypertension SEBLE CASTRO RESIDENT May 31, 2025 12:34
[2025-05-31] MEDS: ACETAMINOPHEN 325 MG TAB PO PRN (12:40)
[2025-05-31] MEDS: LISINOPRIL 20 MG TAB PO SCH (12:41)
[2025-05-31] MEDS: hydrALAZINE HCL 20 MG/ML VL IV PRN (12:42)
[2025-05-31 13:00] VITALS: BP 123/77; PULSE 75; RESP 16; TEMP 97.5; O2SAT 98
[2025-05-31 15:46] VITALS: BP 123/77; PULSE 75; RESP 16; TEMP 97.5
[2025-05-31] MEDS ORDERED: PANTOPRAZOLE 40 MG/10 ML VIAL INJ IV SCH (22:00)
== END 2025-05-31 16:17 | disposition home or self-care (01) | DRG 241 ==
LOC: ER 06:59 → OVERFLOW 13:40 → EAST 22:10
PROVIDERS: ADMIT Internal Medicine Geriatric Medicine; ATTEND Internal Medicine Geriatric Medicine
DX: K29.00 Acute gastritis without bleeding (principal); K85.90 Acute pancreatitis without necrosis or infection, unspecified; I16.0 Hypertensive urgency; A09 Infectious gastroenteritis and colitis, unspecified; K21.9 Gastro-esophageal reflux disease without esophagitis; K80.20 Calculus of gallbladder without cholecystitis without obstruction; E89.0 Postprocedural hypothyroidism; Z98.51 Tubal ligation status; N30.00 Acute cystitis without hematuria
CPT/HCPCS: 36415; 74176; 76705; 80053; 80307; 81001; 83036; 83605; 83690; 83735; 83880; 84443; 85025; 85610; 85730; 86141; 96360; G0378; J2470

== ENCOUNTER 2025-06-07 14:42 | Emergency (ER) | payer MEDICAID ==
[~2025-06-07] VITALS: Ht 160 cm; Wt 67.3 kg
[~2025-06-07 14:42] MED LIST: HYDR12.55 PO; NITR-87 PO; PANT40T PO; SUCR1TAB31 PO; ZOFR4T PO
[2025-06-07 14:46] VITALS: BP 155/86; PULSE 77; RESP 19; TEMP 97.7; O2SAT 98
[2025-06-07] MEDS ORDERED: IBUP-1455 PO (16:27)
[2025-06-07] MEDS ORDERED: ACET-1304 PO (16:27)
--- NOTE | 2025-06-07 16:27 | ED.PDOC ---
Musculoskeletal HPI Comments 59-year-old female with a history of gastritis and hypertension brought in by daughter for evaluation of right foot and ankle pain status post fall while walking down stairs at [employer] yesterday. Patient states she is unable to weight bear due to the pain, however she has not taken any pain medication. She does note swelling and mild bruising of her foot. She denies any other injuries. Chief Complaint: Lower Extremity Time Seen by MD: 15:10 Primary Care Provider: NONE Reviewed Notes: Nurses Notes Allergies: Coded Allergies: NO KNOWN ALLERGIES (Unverified , 03/30/14) Home Meds Active Scripts Acetaminophen (Tylenol Extra Strength) 500 Mg Tab, 1000 MG PO Q6HP PRN, #30 TAB Prn pain Prov:RAGHAV GREEN MD 06/07/25 Ibuprofen Micronized (Ibuprofen) 800 Mg Tab, 800 MG PO Q8HP PRN, #30 TAB Prn pain. Take with food. Prov:RAGHAV GREEN MD 06/07/25 Ondansetron Odt 4MG Tab (ZOFRAN PO) 4 Mg Tb, 4 MG PO Q6HP PRN for 5 Days, #20 TAB ODT TAB-DISSOLVE IN MOUTH, THEN SWALLOW Prov:BETITO CASTRO RESIDENT 05/31/25 Sucralfate (CARAFATE) 1 Gm Tab, 1 GM PO BID for 21 Days, #42 TAB [facility] 05/31/25 Pantoprazole Sodium Sesquihydr (Pantoprazole Sodium) 40 Mg Tab, 40 MG PO DAILY for 30 Days, #30 TAB Prov:[facility] RES[facility] 05/31/25 Nitrofurantoin Monohydrate Mac (Macrobid) 100 Mg Cap, 100 MG PO BID for 5 Days, #10 CAP [facility] 05/31/25 Reported Medications Hydrochlorothiazide (Hydrochlorothiazide) 12.5 Mg Tab, 1 TAB PO DAILY 05/30/25 Information Source: Patient, Relative Mode of Arrival: Ambulatory Past Medical History PAST MEDICAL HISTORY: HTN, Denies Past Medical History (Other): Gastritis Surgical History: BTL, Thyroidectomy [employer] History: No Pertinent [employer] History Family History Family History: Unobtainable Social History Smoker: Non-Smoker Alcohol: Denies ETOH Use Drugs: Denies Drug Use Lives In: Home All Other Systems: Reviewed and Negative (Comprehensive systems review obtained and negative except for what is stated in the HPI.) Physical Exam General Appearance: No Apparent Distress HEENT: Other (Pupils and face symmetric. Moist mucous membranes.) Neck: Full Range of Motion, Non-Tender, Normal Inspection Respiratory: Lungs Clear, No Accessory Muscle Use, No Respiratory Distress, Normal Breath Sounds Cardiovascular: No JVD, Regular Rate/Rhythm Breast Exam: Deferred Gastrointestinal: Non Tender, Soft Genitalia: Deferred Pelvic: Deferred Rectal: Deferred Extremities: Swelling, Tender, Other (Right ankle soft tissue swelling and tenderness at the lateral aspect. Right foot soft tissue swelling and tenderness diffusely on the dorsum. DP and PT pulses intact.) Neurologic: Alert (Oriented x4), Normal Affect, Normal Mood, Other (No gross focal deficit) Cerebellar Function: NOT DONE Reflexes: NOT DONE Skin: Bruises (Mild bruising on the dorsum of the right foot), Dry, Normal Color, Warm Lymphatic: NOT DONE Was a procedure done? Was a procedure done?: Yes Sedation Sedation?: No Other Procedure Procedure Right Lower extremity short posterior molded splint application Indication Right foot fracture Informed consent obtained: Yes Risks, benefits, and alternati: Yes Notes the right lower extremity was neurovascularly intact after the splint was applied. Differential Diagnosis EXT Differential Diagnosis: Cellulitis, Fracture, Sprain, Dislocation, Strain X-Ray, Labs, Meds, VS Vital Signs Date Time Temp Pulse Resp B/P (MAP) Pulse Ox O2 Delivery O2 Flow Rate FiO2 06/07/25 14:46 97.7 77 19 155/86 98 97.7 [place] [address] Ph: [phone] DIAGNOSTIC IMAGING Diagnostic Imaging Report : [id number] Signed PATIENT: THI ORTIZCCT: [id number] UNIT: [id number] : 1965 LOC: ER ROOM / BED: / AGE / SEX: 59 / F ADM STATUS: REG ER SERVICE [id number] ORDERING PHYSICIAN: RAGHAV GREEN MD PROCEDURE(s): RANKL - R ANKLE 3 VIEW REASON: pain/swelling s/p fall ORDER NUMBER(s): [id number], ACCESSION NUMBER(s): [id number] EXAM: XY R ANKLE 3 VIEW INDICATION: pain/swelling s/p fall TECHNIQUE: 3 views of the right ankle COMPARISON: XY R FOOT 3 VIEW XRAY on DOS: 06/07/25 FINDINGS/IMPRESSION: Small avulsive fracture fragment of the dorsal aspect of the anterior talus likely related to talonavicular ligamentous avulsive injury. Achilles insertional enthesophyte. Diffusely decreased bone mineral density. No tibiotalar joint effusion. [place] [address] Ph: [phone] DIAGNOSTIC IMAGING Diagnostic Imaging Report : [id number] Signed PATIENT: THI ORTIZCCT: [id number] UNIT: [id number] : 1965 LOC: ER ROOM / BED: / AGE / SEX: 59 / F ADM STATUS: REG ER SERVICE [id number] ORDERING PHYSICIAN: RAGHAV GREEN MD PROCEDURE(s): RFOOT - R FOOT 3 VIEW XRAY REASON: pain/swelling s/p fall ORDER NUMBER(s): [id number], ACCESSION NUMBER(s): [id number] EXAM: XY R FOOT 3 VIEW XRAY INDICATION: pain/swelling s/p fall TECHNIQUE: 3 views of the right foot COMPARISON: XY R ANKLE 3 VIEW on DOS: 06/07/25 FINDINGS/IMPRESSION: No radiographic evidence of an acute osseous abnormality. There is no acute fracture, osseous malalignment, or aggressive focal osseous lesion. Trace plantar calcaneal spur. Diffusely decreased bone mineral density. Mild dorsal forefoot soft tissue swelling. X-Ray, Labs, Meds, VS Comment 59-year-old female with a history of hypertension and gastritis complaining of right ankle and foot pain status post mechanical fall down stairs yesterday Vitals remarkable for BP 155/86 Exam remarkable for right foot and ankle soft tissue swelling and tenderness with mild bruising Rhythm strip independently interpreted by me: Sinus rhythm, rate 87, no ectopy. Right foot and ankle x-rays: Small avulsive fracture fragment of the dorsal a spect of the anterior talus likely related to talonavicular ligamentous avulsive injury. Achilles insertional enthesophyte. Diffusely decreased bone mineral density. No tibiotalar joint effusion. Patient treated with the following in the ED: Patient declined any pain medication here. Short Leg posterior molded splint was applied to the right lower extremity. The right lower extremity was neurovascularly intact after the splint was applied. Patient was provided with crutches and crutch training. Patient advised she must follow-up with an orthopedist for further evaluation of her foot fracture and probable ligamentous injury. She will be referred to Dr. Dukes. Rx ibuprofen, Tylenol Time of 1ST Reevaluation: 16:25 Reevaluation 1ST: Unchanged Patient Education/Counseling: Diagnosis, Treatment, Need For Follow Up Family Education/Counseling: Diagnosis, Treatment, Need For Follow Up Departure 1 Departure Time of Disposition: 17:25 Impression: Primary Impression: Talus fracture Qualified Codes: S92.151A - Displaced avulsion fracture (chip fracture) of right talus, initial encounter for closed fracture Disposition: 01 HOME / SELF CARE / HOMELESS Condition: Stable Referrals: JOSE ALBERTO DUKES MD Additional Instructions: X-ray showed you have fracture (broken bone) in your foot. There also may be a ligament injury. I have provided the reports below. I have prescribed pain medication. You must follow-up with an orthopedist for further evaluation. Do not weight bear until further evaluation by an orthopedist. You have been referred to Dr. Dukes. [place] [address] Ph: [phone] DIAGNOSTIC IMAGING Diagnostic Imaging Report : [id number] Signed PATIENT: THI ORTIZ ACCT: [id number] UNIT: [id number] : 1965 LOC: ER ROOM / BED: / AGE / SEX: 59 / F ADM STATUS: REG ER SERVICE [id number] ORDERING PHYSICIAN: RAGHAV GREEN MD PROCEDURE(s): RFOOT - R FOOT 3 VIEW XRAY REASON: pain/swelling s/p fall ORDER NUMBER(s): [id number], ACCESSION NUMBER(s): [id number] EXAM: XY R FOOT 3 VIEW XRAY INDICATION: pain/swelling s/p fall TECHNIQUE: 3 views of the right foot COMPARISON: XY R ANKLE 3 VIEW on DOS: 06/07/25 FINDINGS/IMPRESSION: No radiographic evidence of an acute osseous abnormality. There is no acute fracture, osseous malalignment, or aggressive focal osseous lesion. Trace plantar calcaneal spur. Diffusely decreased bone mineral density. Mild dorsal forefoot soft tissue swelling. [place] [address] Ph: [phone] DIAGNOSTIC IMAGING Diagnostic Imaging Report : [id number] Signed PATIENT: THI ORTIZ ACCT: [id number] UNIT: [id number] : 1965 LOC: ER ROOM / BED: / AGE / SEX: 59 / F ADM STATUS: REG ER SERVICE [id number] ORDERING PHYSICIAN: RAGHAV GREEN MD PROCEDURE(s): RANKL - R ANKLE 3 VIEW REASON: pain/swelling s/p fall ORDER NUMBER(s): [id number], ACCESSION NUMBER(s): [id number] EXAM: XY R ANKLE 3 VIEW INDICATION: pain/swelling s/p fall TECHNIQUE: 3 views of the right ankle COMPARISON: XY R FOOT 3 VIEW XRAY on DOS: 06/07/25 FINDINGS/IMPRESSION: Small avulsive fracture fragment of the dorsal aspect of the anterior talus likely related to talonavicular ligamentous avulsive injury. Achilles insertional enthesophyte. Diffusely decreased bone mineral density. No tibiotalar joint effusion. e-Prescriptions Acetaminophen (Tylenol Extra Strength) 500 Mg Tab 1000 MG PO Q6HP PRN, #30 TAB Prn pain Prov: RAGHAV GREEN MD 06/07/25 Ibuprofen Micronized (Ibuprofen) 800 Mg Tab 800 MG PO Q8HP PRN, #30 TAB Prn pain. Take with food. Prov: RAGHAV GREEN MD 06/07/25 Discharged With: Relative Critical Care Note Critical Care Time?: No Stability Stability form required: No Heart Score Heart Score: Heart Score Response (Comments) Value History N/A 0 EKG N/A 0 Age N/A 0 Risk Factors N/A 0 Troponin N/A 0 Total 0 RAGHAV GREEN MD Jun 07, 2025 16:27
--- NOTE | 2025-06-07 17:19 | DVH ---
EXAM: XY R FOOT 3 VIEW XRAY INDICATION: pain/swelling s/p fall TECHNIQUE: 3 views of the right foot COMPARISON: XY R ANKLE 3 VIEW on DOS: 06/07/25 FINDINGS/IMPRESSION: No radiographic evidence of an acute osseous abnormality. There is no acute fracture, osseous malalig nment, or aggressive focal osseous lesion. Trace plantar calcaneal spur. Diffusely decreased bone min eral density. Mild dorsal forefoot soft tissue swelling.
--- NOTE | 2025-06-07 17:20 | DVH ---
EXAM: XY R ANKLE 3 VIEW INDICATION: pain/swelling s/p fall TECHNIQUE: 3 views of the right ankle COMPARISON: XY R FOOT 3 VIEW XRAY on DOS: 06/07/25 FINDINGS/IMPRESSION: Small avulsive fracture fragment of the dorsal aspect of the anterior talus likely related to talonav icular ligamentous avulsive injury. Achilles insertional enthesophyte. Diffusely decreased bone mine ral density. No tibiotalar joint effusion.
== END 2025-06-07 18:16 | disposition home or self-care (01) ==
LOC: ER 14:42
DX: S92.101A Unspecified fracture of right talus, initial encounter for closed fracture (principal); W10.9XXA Fall (on) (from) unspecified stairs and steps, initial encounter; Y93.89 Activity, other specified; Y92.89 Other specified places as the place of occurrence of the external cause; Y99.8 Other external cause status; I10 Essential (primary) hypertension; Z79.899 Other long term (current) drug therapy; Z87.19 Personal history of other diseases of the digestive system; Z90.89 Acquired absence of other organs; Z98.51 Tubal ligation status
CPT/HCPCS: 29515; 73610; 73630